=== PATIENT | female | born 1965 | race Caucasian/White ===

== ENCOUNTER 2016-03-21 02:39 | Emergency (ER) | payer OTHER ==
[~2016-03-21] VITALS: Ht 170.2 cm; Wt 111.7 kg
[~2016-03-21 02:39] MED LIST: BENICAR20 MG PO; EFFEXOR75 MG PO; Habitrol,Nicoderm CQ TD; Levaquin PO; Phenergan W/Codeine PO; Proventil,Ventolin H IH; Tylenol Regular Stre PO; predniSONE PO
[2016-03-21] MEDS ORDERED: CIPROFLOXACIN H10 ML BOTH EYES (03:25)
[2016-03-21 03:33] VITALS: BP 155/92
== END 2016-03-21 03:40 | disposition home or self-care (01) ==
LOC: EME 02:39
DX: H10.33 Unspecified acute conjunctivitis, bilateral (principal); J45.909 Unspecified asthma, uncomplicated; I10 Essential (primary) hypertension; F17.200 Nicotine dependence, unspecified, uncomplicated
CPT/HCPCS: 99281; 99283

== ENCOUNTER 2016-07-04 04:36 | Observation (INO) | payer OTHER ==
[~2016-07-04] VITALS: Ht 170.2 cm; Wt 113.0 kg
[~2016-07-04 04:36] MED LIST changes: +CIPROFLOXACIN H10 ML BOTH EYES
[2016-07-04 05:49] LABS: CHLORIDE 108 mEq/L (99-109); POTASSIUM 3.3 mEq/L (3.7-5.4); SODIUM 141 mEq/L (136-147)
[2016-07-04 05:50] LABS: MCH 31.4 PG (29.0-34.0); MCHC 32.1 G/DL (30.0-36.0); MEAN PLAT.VOLUME 8.6 uM^3 (9.5-12.4); PLATELET COUNT 251 K/uL (156-360); RBC DIS.WIDTH-CV 11.9 % (11.8-14.6); RBC DIS.WIDTH-SD 43.1 % (39-53); RED BLOOD COUNT 3.98 M/uL (3.80-5.20); WHITE BLOOD COUNT 12.5 K/uL (4.1-10.2)
[2016-07-04 05:51] LABS: GLUCOSE 140 mg/dL (70-99)
[2016-07-04 05:52] LABS: ANION GAP 9 MEQ/L (2-14)
[2016-07-04 05:55] LABS: GFR ESTIMATE (CALCULATED) > 59 mL/min/
[2016-07-04 05:56] LABS: UREA NITROGEN (BUN) 8 mg/dL (9-23)
[2016-07-04 06:02] LABS: TROP-I INTERPRETATION NEGATIVE; TROPONIN-I < 0.01 ng/mL (0.0-0.30)
[2016-07-04] MEDS ORDERED: ATORVASTATIN CA20 MG PO (06:10)
[2016-07-04] MEDS ORDERED: ZOLOFT50 MG PO (06:10)
[2016-07-04 07:43] VITALS: BP 138/68
[2016-07-04 11:37] VITALS: BP 129/58
[2016-07-04 15:35] VITALS: BP 168/75
[2016-07-04] MEDS ORDERED: PROVENTIL HFA6.7 GM IH (18:01)
[2016-07-04] MEDS ORDERED: PERCOCET 10/1 TABLET PO (18:02)
[2016-07-04 20:23] VITALS: BP 140/83
[2016-07-05 00:50] VITALS: BP 132/70
[2016-07-05 05:00] VITALS: BP 157/71
[2016-07-05 06:27] LABS: MCHC 32.4 G/DL (30.0-36.0); MCV 98.7 FL (83-99); MEAN PLAT.VOLUME 8.9 uM^3 (9.5-12.4); PLATELET COUNT 261 K/uL (156-360); RBC DIS.WIDTH-CV 12.1 % (11.8-14.6); RED BLOOD COUNT 3.75 M/uL (3.80-5.20); WHITE BLOOD COUNT 14.9 K/uL (4.1-10.2)
[2016-07-05 07:31] VITALS: BP 135/87
[2016-07-05 07:36] LABS: ALKALINE PHOSPHATASE 57 IU/L (3-129); ANION GAP 8 MEQ/L (2-14); CHLORIDE 106 MEQ/L (99-109); GFR ESTIMATE (CALCULATED) > 59 mL/min/; GLUCOSE 138 mg/dL (70-99); SAMPLE HEMOLYSIS CHECK 0; SAMPLE ICTERIC CHECK 0; SAMPLE LIPEMIA CHECK 0; SODIUM 141 MEQ/L (136-147); TOTAL BILIRUBIN 0.2 MG/DL (0.0-1.0); UREA NITROGEN (BUN) 13 mg/dL (9-23)
[2016-07-05 07:51] LABS: POTASSIUM 4.1 MEQ/L (3.7-5.4)
[2016-07-05 12:15] VITALS: BP 155/70
[2016-07-05 16:50] VITALS: BP 115/69
[2016-07-05 19:45] VITALS: BP 133/78
[2016-07-06 00:10] VITALS: BP 134/76
[2016-07-06 03:57] VITALS: BP 172/79
[2016-07-06 07:24] VITALS: BP 175/89
[2016-07-06 12:18] VITALS: BP 120/64
[2016-07-06] MEDS ORDERED: FAMOTIDINE20 MG PO (16:35)
[2016-07-06] MEDS ORDERED: KLOR-CON M1010 MEQ PO (16:35)
[2016-07-06] MEDS ORDERED: PREDNISONE10 MG PO (16:35)
[2016-07-06] MEDS ORDERED: ALBUTEROL2.5 MG/0.5 AEROSOL (16:35)
[2016-07-06] MEDS ORDERED: OXYCODONE-APAP1 EACH PO (16:35)
[2016-07-06] MEDS ORDERED: SYMBICORT60 INHALAT IH (16:35)
[2016-07-06] MEDS ORDERED: AUGMENTIN500 MG PO (16:35)
== END 2016-07-06 19:00 | disposition home or self-care (01) ==
LOC: EME → EDBD 04:36 → EME 04:36 → EDOF 06:22 → 5WEST 06:22
PROVIDERS: Internal Medicine; Physician Assistant
DX: J44.1 Chronic obstructive pulmonary disease with (acute) exacerbation (principal); J44.0 Chronic obstructive pulmonary disease with (acute) lower respiratory infection; J20.9 Acute bronchitis, unspecified; I10 Essential (primary) hypertension; E78.5 Hyperlipidemia, unspecified; J45.909 Unspecified asthma, uncomplicated; F32.9 Major depressive disorder, single episode, unspecified; F17.210 Nicotine dependence, cigarettes, uncomplicated; E66.9 Obesity, unspecified; M19.90 Unspecified osteoarthritis, unspecified site
CPT/HCPCS: 71020; 80048; 80053; 83880; 84484; 85027; 93005; 94010; 94640; 94640 76; 94760; 94799; 99202; 99281; 99285; G0378; J0696; J1650; J2930; J7040; J7050; J7644